=== PATIENT | male | born 1985 | race Caucasian/White ===

== ENCOUNTER 2016-04-20 13:14 | Emergency (ER) | payer MEDICARE ==
[~2016-04-20 13:14] MED LIST: AMOXICILLIN875 MG PO; ANUSOL-HC25 MG RC; ATARAX25 MG PO; CHOLESTEROL; CLARITIN10 MG PO; DAYPRO600 M1 PO; LIDEX0.05% T; LISINOPRIL HCTZ1 TA1; MEDROL DOSEPAK4 MG PO; NKHM; PREDNICOT20 MG PO; PREDNISONE20 MG PO; PROVENTIL0.09 MG/AC IH; ZITHROMAX Z PA250 MG PO
[2016-04-20] MEDS ORDERED: Motrin,Rufen800 MG PO (15:11)
== END 2016-04-20 15:06 | disposition home or self-care (01) ==
LOC: ED 13:14
DX: S93.601A Unspecified sprain of right foot, initial encounter (principal); F17.200 Nicotine dependence, unspecified, uncomplicated; W01.0XXA Fall on same level from slipping, tripping and stumbling without subsequent striking against object, initial encounter; Y93.89 Activity, other specified; Y92.9 Unspecified place or not applicable; Y99.9 Unspecified external cause status

== ENCOUNTER → 2016-07-09 | Outpatient (CLI) | payer MEDICARE, MEDICAID ==
[~2016-07-09] MED LIST changes: +Motrin,Rufen800 MG PO
== END | disposition home or self-care (01) ==
LOC: US 11:36
DX: K80.20 Calculus of gallbladder without cholecystitis without obstruction (principal); R19.7 Diarrhea, unspecified; R10.11 Right upper quadrant pain; J20.9 Acute bronchitis, unspecified; J45.909 Unspecified asthma, uncomplicated; K76.0 Fatty (change of) liver, not elsewhere classified; R05 Cough; R09.89 Other specified symptoms and signs involving the circulatory and respiratory systems

== ENCOUNTER 2017-08-03 09:17 | Emergency (ER) | payer MEDICARE ==
[~2017-08-03] VITALS: Ht 177.8 cm; Wt 136.1 kg
[2017-08-03] MEDS ORDERED: CHLORZOXAZONE500 M2 PO (09:31)
[2017-08-03] MEDS ORDERED: NAPROSYN500 MG PO (09:31)
== END 2017-08-03 11:00 | disposition home or self-care (01) ==
LOC: ED 09:17
DX: M54.5 Low back pain (principal); R03.0 Elevated blood-pressure reading, without diagnosis of hypertension

== ENCOUNTER 2018-12-23 10:08 | Emergency (ER) | payer MEDICARE ==
[~2018-12-23] VITALS: Ht 175.2 cm; Wt 134.3 kg
--- NOTE | ~2018-12-23 | EKG ---
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
[~2018-12-23 10:08] MED LIST changes: +CHLORZOXAZONE500 M2 PO; +NAPROSYN500 MG PO
[2018-12-23] MEDS ORDERED: Motrin,Rufen800 MG PO (13:55)
== END 2018-12-23 14:02 | disposition home or self-care (01) ==
LOC: ED 10:08
DX: R07.89 Other chest pain (principal); Z79.899 Other long term (current) drug therapy; X50.0XXA Overexertion from strenuous movement or load, initial encounter; Y93.89 Activity, other specified; Y92.89 Other specified places as the place of occurrence of the external cause; Y99.8 Other external cause status

== ENCOUNTER 2019-05-11 16:56 | Emergency (ER) | payer MEDICARE ==
[~2019-05-11] VITALS: Ht 172.7 cm; Wt 127.0 kg
[2019-05-11] MEDS ORDERED: IBU800 MG PO (19:32)
== END 2019-05-11 19:46 | disposition home or self-care (01) ==
LOC: ED 16:56
DX: S86.912A Strain of unspecified muscle(s) and tendon(s) at lower leg level, left leg, initial encounter (principal); X58.XXXA Exposure to other specified factors, initial encounter; Y93.89 Activity, other specified; Y92.89 Other specified places as the place of occurrence of the external cause; Y99.8 Other external cause status

== ENCOUNTER → 2022-06-19 | Outpatient (CLI) | payer BC, MEDICARE ==
[~2022-06-19] MED LIST changes: +IBU800 MG PO
== END | disposition home or self-care (01) ==
LOC: RAD 12:53
PROVIDERS: ATTEND Nurse Practitioner Family
DX: R05.1 Acute cough (principal)

== ENCOUNTER 2022-08-09 15:40 | Emergency (ER) | payer BC, MEDICARE | END 2022-08-09 17:09 | disposition left against medical advice (07) | LOC: ED 15:40 | DX: T14.8XXA Other injury of unspecified body region, initial encounter (principal); Z53.21 Procedure and treatment not carried out due to patient leaving prior to being seen by health care provider; W57.XXXA Bitten or stung by nonvenomous insect and other nonvenomous arthropods, initial encounter; Y93.89 Activity, other specified; Y92.89 Other specified places as the place of occurrence of the external cause; Y99.8 Other external cause status ==

== ENCOUNTER → 2022-10-03 | Outpatient (CLI) | payer BC ==
[~2022-10-03] MED LIST changes: +AMOX-CLAV 875-1 EACH PO; +ATORVASTATIN CA40 M1 PO; +HUMALOG100 UNIT/1 SC; +LANCETS1 EAC3 MC; +LANTUS SOL100 UNIT/1 SC; +LISINOPRIL10 M1 PO; +METFORMIN HYDR500 MG PO; +PEN NEEDLE1 EAC1 MC; +TEST STRIPS1 EACH SC; +VITAMIN D350 MCG PO
== END | disposition home or self-care (01) ==
LOC: WOUNDCARE 01:08
PROVIDERS: ATTEND Nurse Practitioner Primary Care
DX: L02.91 Cutaneous abscess, unspecified (principal); L03.90 Cellulitis, unspecified; E11.9 Type 2 diabetes mellitus without complications; I10 Essential (primary) hypertension; Z79.84 Long term (current) use of oral hypoglycemic drugs

== ENCOUNTER → 2024-03-24 | Outpatient (CLI) | payer BC, MEDICARE | END | disposition home or self-care (01) | LOC: RAD 09:53 | PROVIDERS: ATTEND Family Medicine | DX: J18.9 Pneumonia, unspecified organism (principal) ==

== ENCOUNTER 2024-09-30 08:55 | Emergency (ER) | payer OTHER, BC, MEDICARE ==
[~2024-09-30] VITALS: Ht 170.1 cm; Wt 102.5 kg
[2024-09-30] MEDS ORDERED: METFORMIN HYD1000 MG PO (09:04)
== END 2024-09-30 09:38 | disposition home or self-care (01) ==
LOC: ED 08:55
DX: S61.012A Laceration without foreign body of left thumb without damage to nail, initial encounter (principal); Z79.899 Other long term (current) drug therapy; W26.8XXA Contact with other sharp object(s), not elsewhere classified, initial encounter; Y93.89 Activity, other specified; Y92.89 Other specified places as the place of occurrence of the external cause; Y99.8 Other external cause status